=== PATIENT | male | born 1970 | race Caucasian/White ===

== ENCOUNTER 2020-09-23 00:39 | Emergency (ER) | payer SELFPAY ==
[~2020-09-23] VITALS: Ht 162.6 cm; Wt 74.0 kg
[2020-09-23] MEDS ORDERED: IBUP-2028 MT (03:13)
[2020-09-23] MEDS ORDERED: IBUPROFEN 400MG TABLET PO ONE (03:15)
[2020-09-23 03:41] VITALS: BP 121/80
== END 2020-09-23 03:42 | disposition home or self-care (01) ==
LOC: ER 00:39
DX: M25.511 Pain in right shoulder (principal)
CPT/HCPCS: 73030; 99283